=== PATIENT | male | born 1980 | race Caucasian/White ===

== ENCOUNTER 2017-04-21 09:52 | Outpatient (CLI) | payer OTHER ==
[2017-04-21] MEDS ORDERED: NACL ONE ×2 (10:16→15:31)
--- NOTE | 2017-04-21 11:09 | Cat Scan Report ---
CT CERVICAL SPINE WITH CONTRAST INDICATION: Neck pain. COMPARISON: None similar. FINDINGS: Axial, sagittal and coronal CT reconstructions through the cervical spine following IV contrast demonstrates normal imaged intracranial appearance. Clear mastoid air cells. Patent airway. Normal size thyroid. Patent vessels. Clear imaged lung apices. C5-C6 developmental anomaly with hypoplastic disc noted. C5 through C7 degenerative spurring also seen. Assessment of the spinal canal itself compromised from C5 inferiorly due to shoulder soft tissues artifact. Normal remainder upper cervical levels, including the dens and craniocervical articulation. Normal prevertebral soft tissues and the posterior elements. On the obtained axial images, C4-C5 demonstrates mild diffuse disc bulge, greatest right paracentral with possible ventral cord flattening. AP cord caliber approximately 0.7 cm on axial image 48, series 3. Remainder cervical levels unremarkable. 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 Please correlate. Thank you for the opportunity to participate in this patient's care.
--- NOTE | 2017-04-21 11:10 | XRay Report ---
RIGHT CLAVICLE RADIOGRAPHS INDICATION: Neck and shoulder pain. COMPARISON: None similar. FINDINGS: Two frontal projections of the right clavicle demonstrate intact bones as also the included joints and soft tissues. CONCLUSION: Normal right clavicle radiographs. Thank you for the opportunity to participate in this patient's care.
--- NOTE | 2017-04-21 11:11 | XRay Report ---
RIGHT SHOULDER RADIOGRAPHS INDICATION: Neck and shoulder pain. COMPARISON: None similar. FINDINGS: Frontal and Y views of the right shoulder, 3 projections demonstrate normal humeral head contour, well positioned against the glenoid. Normal acromioclavicular joint. Preserved scapular contour. Normal visualized soft tissues, right ribs and lung. CONCLUSION: No acute right shoulder radiographic abnormality, as described. Thank you for the opportunity to participate in this patient's care.
== END 2017-04-21 09:53 | disposition home or self-care (01) ==
LOC: CT 09:52
PROVIDERS: ATTEND Family Medicine
DX: M50.221 Other cervical disc displacement at C4-C5 level (principal); M47.892 Other spondylosis, cervical region
CPT/HCPCS: 72126; 73000; 73030; Q9967